=== PATIENT | male | born 1990 | race Hispanic/Latino ===

== ENCOUNTER 2024-05-21 20:13 | Emergency (ER) | payer OTHER ==
[~2024-05-21] VITALS: Ht 175.3 cm; Wt 93.0 kg
[2024-05-21 21:18] LABS: BASOPHILS # (AUTO) 0.03 K/uL (0.00-0.20); BASOPHILS % (AUTO) 0.4 % (0.0-5.0); HEMATOCRIT 51.7 % (42-54); IMMATURE GRANULOCYTE ABSOLUTE 0.02 K/uL (0-1); LYMPHOCYTES # (AUTO) 0.7 K/uL (1.0-4.8); LYMPHOCYTES % (AUTO) 9.3 % (21.0-51.0); MEAN CORPUSCULAR HEMOGLOBIN 27.4 pg (27.0-33.0); MEAN CORPUSCULAR HGB CONC 33.7 g/dL (32.0-36.0); MEAN CORPUSCULAR VOLUME 81.4 fL (79-99); MONOCYTES # (AUTO) 0.6 K/uL (0.1-1.0); MONOCYTES % (AUTO) 8.4 % (3.0-13.0); NEUTROPHILS # (AUTO) 5.8 K/uL (1.8-7.7); NEUTROPHILS % (AUTO) 81.6 % (40.0-77.0); PLATELET COUNT (AUTO) 183 K/uL (130-400); RED BLOOD CELL COUNT(AUTO) 6.35 MIL/uL (4.50-6.20); RED CELL DISTRIBUTION WIDTH 13.2 % (11.0-15.5); WHITE BLOOD COUNT (AUTO) 7.1 K/uL (4.8-10.8)
[2024-05-21 21:27] LABS: CREATININE 1.2 mg/dL (0.5-1.3); POTASSIUM 4.1 mmol/L (3.5-5.1)
[2024-05-21 21:37] LABS: RAPID GROUP A STREP negative (NEGATIVE)
[2024-05-21 21:42] LABS: SARS-CoV-2, RNA, NAAT NEGATIVE SARS CoV-2 (NEGATIVE)
[2024-05-21 21:47] LABS: INFLUENZA TYPE A Negative For Type A (NEGATIVE); INFLUENZA TYPE B Negative For Type B (NEGATIVE)
[2024-05-21 22:22] LABS: APPEARANCE,URINE CLEAR (CLEAR); BILIRUBIN,URINE 1 mg/dL (NEGATIVE); COLOR,URINE YELLOW (YELLOW); GLUCOSE, URINE (UA) NEGATIVE (NEGATIVE); KETONES,URINE >=80 mg/dL (NEGATIVE); LEUKOCYTE ESTERASE ,URINE NEGATIVE Leu/uL (NEGATIVE); NITRATE,URINE NEGATIVE (NEGATIVE); OCCULT BLOOD,URINE NEGATIVE (NEGATIVE); PROTEIN,URINE 100 mg/dL (NEGATIVE); UROBILINOGEN,URINE 3 mg/dL (0.2-1.0)
[2024-05-21 22:35] VITALS: TEMP 103.1
[2024-05-21] MEDS: IBUPROFEN 600 MG TABLET PO ONE (22:35)
[2024-05-21 22:42] LABS: MUCUS,URINE MANY LPF (None Seen); RBC,URINE 0-1 /HPF (0-1)
[2024-05-21 23:12] VITALS: BP 124/90; PULSE 92; RESP 18; O2SAT 97
[2024-05-21] MEDS ORDERED: ACET-66 PO (23:31)
[2024-05-21] MEDS ORDERED: CLIN-141 PO (23:31)
[2024-05-21] MEDS ORDERED: FLUT16H NASAL (23:31)
== END 2024-05-21 23:40 | disposition home or self-care (01) ==
LOC: EDH 20:13
DX: J32.9 Chronic sinusitis, unspecified (principal); K21.9 Gastro-esophageal reflux disease without esophagitis; Z88.0 Allergy status to penicillin; Z20.822 Contact with and (suspected) exposure to COVID-19
CPT/HCPCS: 36415; 80048; 81001; 85025; 86000; 87635; 87804; 87880

== ENCOUNTER 2024-05-27 17:06 | Inpatient (IN) | payer OTHER ==
[~2024-05-27] VITALS: Ht 175.3 cm; Wt 94.5 kg
[~2024-05-27 17:06] MED LIST: ACET-66 PO; CLIN-141 PO; FLUT16H NASAL
[2024-05-27 17:31] LABS: BASOPHILS # (AUTO) 0.05 K/uL (0.00-0.20); BASOPHILS % (AUTO) 0.6 % (0.0-5.0); HEMATOCRIT 45.3 % (42-54); IMMATURE GRANULOCYTE ABSOLUTE 0.03 K/uL (0-1); LYMPHOCYTES # (AUTO) 1.8 K/uL (1.0-4.8); LYMPHOCYTES % (AUTO) 22.2 % (21.0-51.0); MEAN CORPUSCULAR HEMOGLOBIN 26.6 pg (27.0-33.0); MEAN CORPUSCULAR HGB CONC 33.8 g/dL (32.0-36.0); MEAN CORPUSCULAR VOLUME 78.8 fL (79-99); MONOCYTES # (AUTO) 0.4 K/uL (0.1-1.0); MONOCYTES % (AUTO) 4.8 % (3.0-13.0); NEUTROPHILS # (AUTO) 5.7 K/uL (1.8-7.7); PLATELET COUNT (AUTO) 121 K/uL (130-400); RED BLOOD CELL COUNT(AUTO) 5.75 MIL/uL (4.50-6.20); RED CELL DISTRIBUTION WIDTH 13.4 % (11.0-15.5)
[2024-05-27 17:55] LABS: CREATININE 1.4 mg/dL (0.5-1.3); POTASSIUM 3.8 mmol/L (3.5-5.1)
[2024-05-27 21:05] LABS: APPEARANCE,URINE CLOUDY (CLEAR); BILIRUBIN,URINE NEGATIVE (NEGATIVE); COLOR,URINE YELLOW (YELLOW); GLUCOSE, URINE (UA) NEGATIVE (NEGATIVE); KETONES,URINE 40 mg/dL (NEGATIVE); LEUKOCYTE ESTERASE ,URINE NEGATIVE Leu/uL (NEGATIVE); NITRATE,URINE NEGATIVE (NEGATIVE); OCCULT BLOOD,URINE NEGATIVE (NEGATIVE); PROTEIN,URINE 50 mg/dL (NEGATIVE)
[2024-05-27 21:13] LABS: ADD UA MICROSCOPIC YES
[2024-05-27 21:16] LABS: MUCUS,URINE MOD LPF (None Seen); SQUAMOUS EPITHELIAL CELL,UR RARE /HPF (0-2)
[2024-05-27 21:20] LABS: COVID19 (SARS ANTIGEN RAPID) PRESUMPTIVE NEGATIVE (NEGATIVE); INFLUENZA TYPE A Negative For Type A (NEGATIVE); INFLUENZA TYPE B Negative For Type B (NEGATIVE)
[2024-05-27] MEDS: DIPHENHYDRAMINE HCL 25 MG CAPSULE PO ONE (23:10)
[2024-05-27] MEDS: 0.9%NACL 1000ML 1,000 ML IV ONE (23:10)
[2024-05-28] MEDS ORDERED: DOXY100C5 PO (00:10)
[2024-05-28] MEDS: ACETAMINOPHEN 500 MG TABLET PO ONE (00:17)
[2024-05-28] MEDS: IBUPROFEN 800 MG TAB PO ONE (00:17)
[2024-05-28] MEDS ORDERED: ACETAMINOPHEN 325 MG TAB PO PRN (02:30)
[2024-05-28] MEDS ORDERED: ONDANSETRON 4MG INJ IV PRN (02:30)
[2024-05-28] MEDS: DOXYCYCLINE 100MG+NS 250ML 250 ML IV SCH (03:20)
[2024-05-28] MEDS: 0.9%NACL 1000ML 1,000 ML IV SCH (03:20)
[2024-05-28 05:35] LABS: BASOPHILS # (AUTO) 0.02 K/uL (0.00-0.20); BASOPHILS % (AUTO) 0.3 % (0.0-5.0); EOSINOPHILS # (AUTO) 0.04 K/uL (0.00-0.70); EOSINOPHILS % (AUTO) 0.6 % (0.0-8.0); HEMATOCRIT 38.4 % (42-54); IMMATURE GRANULOCYTE ABSOLUTE 0.02 K/uL (0-1); LYMPHOCYTES # (AUTO) 1.7 K/uL (1.0-4.8); LYMPHOCYTES % (AUTO) 27.8 % (21.0-51.0); MEAN CORPUSCULAR HGB CONC 33.6 g/dL (32.0-36.0); MEAN CORPUSCULAR VOLUME 80.5 fL (79-99); MONOCYTES # (AUTO) 0.4 K/uL (0.1-1.0); PLATELET COUNT (AUTO) 109 K/uL (130-400); RED BLOOD CELL COUNT(AUTO) 4.77 MIL/uL (4.50-6.20); RED CELL DISTRIBUTION WIDTH 13.6 % (11.0-15.5); WHITE BLOOD COUNT (AUTO) 6.2 K/uL (4.8-10.8)
[2024-05-28 06:12] LABS: ALBUMIN 2.9 g/dL (3.5-5.0); BILIRUBIN,TOTAL 0.9 mg/dL (0.2-1.0); MAGNESIUM 1.9 mg/dL (1.80-2.40); POTASSIUM 3.5 mmol/L (3.5-5.1); TOTAL PROTEIN, SERUM 6.4 g/dL (6.0-8.3)
[2024-05-28 08:54] LABS: ERYTHROCYTE SEDIMENTATION RATE 18 MM/HR (0-15)
[2024-05-28] MEDS: FAMOTIDINE 20MG TAB PO SCH (09:44)
[2024-05-28 12:40] VITALS: BP 122/84; PULSE 86; RESP 18
[2024-05-28] MEDS: ACETAMINOPHEN 325 MG TAB PO PRN (15:49)
[2024-05-28 16:00] VITALS: BP 128/70; PULSE 115; RESP 18
[2024-05-28 20:00] VITALS: O2SAT 100
[2024-05-28 21:05] VITALS: BP 113/59; PULSE 80; RESP 18
[2024-05-28 23:44] VITALS: BP 118/72; PULSE 102; RESP 18
[2024-05-28 23:48] VITALS: TEMP 101
[2024-05-29 04:09] VITALS: BP 116/60; PULSE 85; RESP 17
[2024-05-29 04:30] LABS: HIV 1&2 ANTIBODY Non-Reactive (Negative)
[2024-05-29 04:31] LABS: HIV-1 p24 Antigen Non-Reactive (Negative)
[2024-05-29 08:00] VITALS: BP 126/65; PULSE 89; RESP 18; O2SAT 96
[2024-05-29] MEDS: LEVOFLOXACIN 750 MG/D5W 150 ML 150 ML IV SCH (08:51)
[2024-05-29 12:00] VITALS: BP 120/70; PULSE 101; RESP 19
[2024-05-29] MEDS ORDERED: ACETAMINOPHEN 500 MG TABLET PO PRN (14:30)
[2024-05-29] MEDS: KCL 20 MEQ ERTAB PO ONE (14:55)
[2024-05-29 15:58] LABS: HEPATITIS A IGM ANTIBODY Non-Reactive (Nonreactive); HEPATITIS B CORE IGM ANTIBODY Non-Reactive (Negative); HEPATITIS B SURFACE ANTIGEN Non-Reactive (Nonreactive); HEPATITIS C ANTIBODY Non-Reactive (Nonreactive)
[2024-05-29 16:00] VITALS: BP 121/72; PULSE 86; RESP 18
[2024-05-29 19:00] VITALS: BP 121/75; PULSE 105; RESP 20
[2024-05-29 20:00] VITALS: O2SAT 98
[2024-05-29] MEDS: FLUTICASONE PROPIONATE 50MCG/SPRAY 16 GM BOTTLE EN SCH (20:28)
[2024-05-30] VITALS: BP 133/74; PULSE 96; RESP 20
[2024-05-30 04:00] VITALS: BP 128/76; PULSE 85; RESP 20
[2024-05-30 04:42] LABS: BASOPHILS # (AUTO) 0.04 K/uL (0.00-0.20); BASOPHILS % (AUTO) 0.8 % (0.0-5.0); EOSINOPHILS # (AUTO) 0.08 K/uL (0.00-0.70); EOSINOPHILS % (AUTO) 1.5 % (0.0-8.0); HEMATOCRIT 39.9 % (42-54); IMMATURE GRANULOCYTE ABSOLUTE 0.02 K/uL (0-1); LYMPHOCYTES # (AUTO) 1.9 K/uL (1.0-4.8); LYMPHOCYTES % (AUTO) 36.9 % (21.0-51.0); MEAN CORPUSCULAR HEMOGLOBIN 26.7 pg (27.0-33.0); MEAN CORPUSCULAR HGB CONC 32.6 g/dL (32.0-36.0); MEAN CORPUSCULAR VOLUME 81.9 fL (79-99); MONOCYTES # (AUTO) 0.4 K/uL (0.1-1.0); MONOCYTES % (AUTO) 8.1 % (3.0-13.0); NEUTROPHILS # (AUTO) 2.7 K/uL (1.8-7.7); NEUTROPHILS % (AUTO) 52.3 % (40.0-77.0); PLATELET COUNT (AUTO) 141 K/uL (130-400); RED BLOOD CELL COUNT(AUTO) 4.87 MIL/uL (4.50-6.20); RED CELL DISTRIBUTION WIDTH 13.9 % (11.0-15.5); WHITE BLOOD COUNT (AUTO) 5.2 K/uL (4.8-10.8)
[2024-05-30 05:15] LABS: ALBUMIN 2.9 g/dL (3.5-5.0); BILIRUBIN,TOTAL 0.7 mg/dL (0.2-1.0); CREATININE 0.9 mg/dL (0.5-1.3); MONOTEST NEGATIVE (NEGATIVE); POTASSIUM 4.3 mmol/L (3.5-5.1); TOTAL PROTEIN, SERUM 6.7 g/dL (6.0-8.3)
[2024-05-30 05:25] LABS: HIV 1&2 ANTIBODY Non-Reactive (Negative); HIV-1 p24 Antigen Non-Reactive (Negative)
[2024-05-30 08:00] VITALS: BP 109/83; PULSE 83; RESP 13; O2SAT 96
[2024-05-30 12:00] VITALS: BP 118/83; PULSE 87; RESP 15
[2024-05-30 16:00] VITALS: BP 115/74; PULSE 89; RESP 15
[2024-05-30 20:00] VITALS: BP 128/81; PULSE 80; RESP 20
[2024-05-31] VITALS: BP 128/84; PULSE 88; RESP 20
[2024-05-31 04:00] VITALS: BP 121/70; PULSE 89; RESP 20
[2024-05-31 04:10] LABS: BASOPHILS # (AUTO) 0.04 K/uL (0.00-0.20); BASOPHILS % (AUTO) 0.7 % (0.0-5.0); EOSINOPHILS # (AUTO) 0.09 K/uL (0.00-0.70); EOSINOPHILS % (AUTO) 1.7 % (0.0-8.0); HEMATOCRIT 39.3 % (42-54); IMMATURE GRANULOCYTE ABSOLUTE 0.02 K/uL (0-1); LYMPHOCYTES # (AUTO) 2.2 K/uL (1.0-4.8); LYMPHOCYTES % (AUTO) 40.2 % (21.0-51.0); MEAN CORPUSCULAR HEMOGLOBIN 26.7 pg (27.0-33.0); MEAN CORPUSCULAR HGB CONC 33.3 g/dL (32.0-36.0); MONOCYTES # (AUTO) 0.4 K/uL (0.1-1.0); MONOCYTES % (AUTO) 7.9 % (3.0-13.0); NEUTROPHILS # (AUTO) 2.7 K/uL (1.8-7.7); NEUTROPHILS % (AUTO) 49.1 % (40.0-77.0); PLATELET COUNT (AUTO) 172 K/uL (130-400); RED BLOOD CELL COUNT(AUTO) 4.91 MIL/uL (4.50-6.20); RED CELL DISTRIBUTION WIDTH 13.9 % (11.0-15.5); WHITE BLOOD COUNT (AUTO) 5.4 K/uL (4.8-10.8)
[2024-05-31 04:32] LABS: ALBUMIN 3.1 g/dL (3.5-5.0); BILIRUBIN,TOTAL 0.6 mg/dL (0.2-1.0); CREATININE 0.9 mg/dL (0.5-1.3); POTASSIUM 3.8 mmol/L (3.5-5.1); TOTAL PROTEIN, SERUM 6.9 g/dL (6.0-8.3)
[2024-05-31 08:22] VITALS: BP 121/87; PULSE 74; RESP 17
[2024-05-31] MEDS ORDERED: FAMO20TA8 PO (09:00)
== END 2024-05-31 11:45 | disposition home or self-care (01) | DRG 864 ==
LOC: EDH 17:06 → EDHIP 05-28 02:29 → OBSVTOIN 05-28 02:29 → EDHIP 05-28 02:48 → 4BH 05-28 12:24
PROVIDERS: ADMIT Internal Medicine; ATTEND Internal Medicine
DX: R50.9 Fever, unspecified (principal); R65.11 Systemic inflammatory response syndrome (SIRS) of non-infectious origin with acute organ dysfunction; Z20.822 Contact with and (suspected) exposure to COVID-19; D69.6 Thrombocytopenia, unspecified; H66.93 Otitis media, unspecified, bilateral; J45.909 Unspecified asthma, uncomplicated; K21.9 Gastro-esophageal reflux disease without esophagitis; Z88.0 Allergy status to penicillin
CPT/HCPCS: 36415; 71045; 76700; 80048; 80053; 80074; 81001; 83605; 83735; 84145; 85025; 85651; 86000; 86140; 86308; 86592; 86701; 86757; 87040; 87086; 87390; 87426; 87804; G0378; J1956; J3490; J7030; Q0163